=== PATIENT | female | born 2000 | race Hispanic/Latino ===

== ENCOUNTER 2023-04-14 19:29 | Emergency (ER) | payer OTHER, SELFPAY ==
[2023-04-14] MEDS ORDERED: Dexamethasone 10 MG/ML VIAL ONE (20:12)
[2023-04-14] MEDS ORDERED: Ketorolac Tromethamine 30 MG/ML VIAL ONE (20:12)
== END 2023-04-14 20:46 | disposition home or self-care (01) ==
LOC: MADERS 19:29
DX: U07.1 COVID-19 (principal)
CPT/HCPCS: 87635; 87804; 96372; 99283; J1100; J1885